=== PATIENT | female | born 1930 | race Caucasian/White ===

== ENCOUNTER 2019-10-06 10:58 | Inpatient (IN) | payer MEDICARE, OTHER ==
[2019-10-03 14:41] LABS: BASOPHILS # (AUTO) 0.03 x10^3/uL (0-0.1); BASOPHILS % (AUTO) 0 % (0-1); EOSINOPHILS % (AUTO) 1 % (1-7); LYMPHOCYTES % (AUTO) 20 % (22-44); MD NO; MEAN CORPUSCULAR HGB CONC 32.8 g/dL (32.4-35.8); MEAN PLATELET VOLUME 9.2 fL (7.4-10.4); MONOCYTES # (AUTO) 0.58 x10^3/uL (0.2-0.8); MONOCYTES % (AUTO) 8 % (2-9); NEUTROPHILS # (AUTO) 5.02 x10^3/uL (1.8-6.8); NEUTROPHILS % (AUTO) 71 % (42-75); PLATELET COUNT 155 x10^3/uL (130-400); RED BLOOD COUNT 4.67 x10^6/uL (3.82-5.3); RED CELL DISTRIBUTION WIDTH 14.9 % (9.6-15.2)
[2019-10-03 14:52] LABS: ALANINE AMINOTRANSFERASE 22 U/L (12-78); ALBUMIN 4.4 g/dL (3.4-5.0); ANION GAP 6 mmol/L (5-15); CALCIUM 9.4 mg/dL (8.5-10.1); CHLORIDE 103 mmol/L (98-107); CREATININE 0.99 mg/dL (0.55-1.02)
[2019-10-03 14:54] LABS: ALKALINE PHOSPHATASE 66 U/L (45-117); BILIRUBIN,TOTAL 0.5 mg/dL (0.2-1.0)
[~2019-10-06] VITALS: Ht 177.8 cm; Wt 81.7 kg
[~2019-10-06 10:58] MED LIST: ACET325T14 PO; APIX5TAB PO; ASPI-691 PO; EPINEPHRINE 1 MG/ML, 1ML ONE; IRBE75TA31 PO; KETOROLAC 60 MG/2 ML ONE; METO25TA2 PO; METO25TA35 PO; MULT-449 PO; MULT-717 PO; ROPIvacaine/PF 0.2%, 20 ML ONE; SODIUM CHLORIDE 0.9% 50 ML ONE; TRANEXAMIC ACID 100 MG/ML, 10ML ONE; oxycodone PO
[2019-10-06] MEDS ORDERED: VANCOMYCIN PER PHARMACY MC PRN (12:00)
[2019-10-06] MEDS ORDERED: CHLORHEXIDINE 15 ML UDC MM ONE (12:00)
[2019-10-06] MEDS ORDERED: CHLORHEXIDINE 15 ML UDC ONE (12:05)
[2019-10-06] MEDS ORDERED: VANCOMYCIN 1,800 MG in SODIUM CHLORIDE 0.9% 250 ML IV ONE (12:30)
[2019-10-06] MEDS ORDERED: LACTATED RINGERS 1,000 ML IV SCH (12:30)
[2019-10-06] MEDS ORDERED: FENTANYL PF 250 MCG/5ML ONE (13:03)
[2019-10-06] MEDS ORDERED: MEPERIDINE/PF 25MG/0.5ML IVPush PRN (13:30)
[2019-10-06] MEDS ORDERED: ONDANSETRON 2MG/ML, 2ML IVPush PRN ×2 (13:30→16:30)
[2019-10-06] MEDS ORDERED: OXYcodone 5 MG/5 ML ORAL.SOL UDC PO PRN (13:30)
[2019-10-06] MEDS ORDERED: LABETALOL 5MG/ML, 20ML IV PRN (13:30)
[2019-10-06] MEDS ORDERED: ACETAMINOPHEN 325 MG TABLET PO PRN (13:30)
[2019-10-06] MEDS ORDERED: CEFAZOLIN 1,000 MG ONE (13:53)
[2019-10-06] MEDS ORDERED: PROPOFOL 10 MG/ML, 20ML ONE (13:53)
[2019-10-06] MEDS ORDERED: ONDANSETRON 2MG/ML, 2ML ONE (13:53)
[2019-10-06] MEDS ORDERED: METOPROLOL 1 MG/ML, 5ML ONE (13:53)
[2019-10-06] MEDS ORDERED: ROCURONIUM 10MG/ML,5ML ONE ×6 (13:53)
[2019-10-06] MEDS ORDERED: FENTANYL PF 100 MCG/2ML ONE ×2 (14:59→16:18)
[2019-10-06] MEDS: SODIUM CHLORIDE 0.9% 1,000 ML IV SCH (16:12)
[2019-10-06] MEDS ORDERED: OXYcodone 5 MG/5 ML ORAL.SOL UDC ONE (16:18)
[2019-10-06] MEDS: FENTANYL PF 100 MCG/2ML IV PRN ×3 (16:20→16:45)
[2019-10-06] MEDS: ACETAMINOPHEN 500 MG TABLET PO SCH ×2 (16:30→21:54)
[2019-10-06] MEDS ORDERED: DIAZEPAM 5 MG TABLET PO PRN (16:30)
[2019-10-06] MEDS ORDERED: OXYcodone IR 5MG TABLET PO PRN ×2 (16:30)
[2019-10-06] MEDS ORDERED: BISACODYL 10 MG SUPP PR PRN (16:30)
[2019-10-06] MEDS ORDERED: MAGNESIUM HYDROXIDE 8%, 30ML UDC PO PRN (16:30)
[2019-10-06] MEDS ORDERED: CEFAZOLIN PMX 1GM/50ML 50 ML IVPB SCH (16:30)
[2019-10-06] MEDS ORDERED: PROMETHAZINE 12.5 MG SUPP PR PRN (16:30)
[2019-10-06] MEDS ORDERED: PROMETHAZINE 25 MG/ML, 1ML IM PRN (16:30)
[2019-10-06] MEDS ORDERED: DIPHENHYDRAMINE 50 MG/ML, 1ML IVPush PRN (16:30)
[2019-10-06] MEDS ORDERED: PSYLLIUM PACKET PO PRN (16:30)
[2019-10-06] MEDS ORDERED: ALUMINUM/MAG/SIMETHICONE 30 ML UDC PO PRN (16:30)
[2019-10-06] MEDS ORDERED: HOLD MEDICATION MC PRN (16:30)
[2019-10-06] MEDS ORDERED: ONDANSETRON 4 MG TABLET PO PRN (16:30)
[2019-10-06] MEDS ORDERED: METOCLOPRAMIDE 5 MG/ML, 2ML IVPush PRN (16:30)
[2019-10-06] MEDS ORDERED: SENNA/DOCUSATE TABLET PO PRN (16:30)
[2019-10-06] MEDS ORDERED: DEXAMETHASONE 4 MG/ML, 1ML IVPush ONE (16:30)
[2019-10-06] MEDS ORDERED: DIPHENHYDRAMINE 25 MG CAPSULE PO PRN (16:30)
[2019-10-06] MEDS ORDERED: POLYETHYLENE GLYCOL 17 GM PACKET PO PRN (16:30)
[2019-10-06] MEDS ORDERED: HYDROmorphone 1 MG/ML, 1ML INJ IVPush PRN (16:30)
[2019-10-06] MEDS ORDERED: hydrALAzine 20 MG/ML, 1ML ONE (16:36)
[2019-10-06] MEDS: hydrALAzine 20 MG/ML, 1ML IV PRN ×3 (16:40→17:27)
[2019-10-06] MEDS ORDERED: ENALAPRILAT 1.25 MG/ML, 2ML IV PRN (17:00)
[2019-10-06] MEDS ORDERED: HYDROmorphone 1 MG/ML, 1ML INJ ONE (17:07)
[2019-10-06] MEDS ORDERED: TRANEXAMIC ACID 1,000 MG in SODIUM CHLORIDE 0.9% 100 ML IVPB ONE (17:30)
[2019-10-06] MEDS: KETOROLAC 30 MG/1 ML IV SCH (18:00)
[2019-10-06 19:14] VITALS: BP 149/66
[2019-10-06] MEDS: DOCUSATE 100 MG CAPSULE PO SCH (21:51)
[2019-10-06] MEDS: APIXABAN 5 MG TABLET PO SCH (21:52)
[2019-10-07 00:02] VITALS: BP 111/66
[2019-10-07] MEDS: KETOROLAC 30 MG/1 ML IV SCH ×2 (02:13→09:00)
[2019-10-07 04:40] LABS: MEAN CORPUSCULAR HEMOGLOBIN 32.3 pg (27.0-34.8); MEAN CORPUSCULAR HGB CONC 32.9 g/dL (32.4-35.8); MEAN PLATELET VOLUME 9.8 fL (7.4-10.4); PLATELET COUNT 123 x10^3/uL (130-400); RED BLOOD COUNT 3.71 x10^6/uL (3.82-5.3); RED CELL DISTRIBUTION WIDTH 14.5 % (9.6-15.2)
[2019-10-07] MEDS: ACETAMINOPHEN 500 MG TABLET PO SCH ×4 (04:40→19:38)
[2019-10-07 04:46] LABS: ALBUMIN 2.9 g/dL (3.4-5.0); ANION GAP 6 mmol/L (5-15); CHLORIDE 106 mmol/L (98-107)
[2019-10-07] MEDS: SODIUM CHLORIDE 0.9% 1,000 ML IV SCH (05:06)
[2019-10-07 05:50] LABS: BASOPHILS # (AUTO) 0.01 x10^3/uL (0-0.1); BASOPHILS % (AUTO) 0 % (0-1); EOSINOPHILS # (AUTO) 0.01 x10^3/uL (0-0.4); EOSINOPHILS % (AUTO) 0 % (1-7); LYMPHOCYTES # (AUTO) 0.31 x10^3/uL (1-3.4); LYMPHOCYTES % (AUTO) 2 % (22-44); MD SCAN; MONOCYTES % (AUTO) 7 % (2-9); NEUTROPHILS # (AUTO) 11.59 x10^3/uL (1.8-6.8); NEUTROPHILS % (AUTO) 90 % (42-75)
[2019-10-07 07:15] VITALS: BP 132/62
[2019-10-07] MEDS: MULTIVITAMINS/MINERALS TABLET PO SCH (08:59)
[2019-10-07] MEDS: APIXABAN 5 MG TABLET PO SCH ×2 (08:59→19:39)
[2019-10-07] MEDS: IRBESARTAN 150 MG TABLET PO SCH (08:59)
[2019-10-07] MEDS: DOCUSATE 100 MG CAPSULE PO SCH ×2 (09:00→19:39)
[2019-10-07] MEDS ORDERED: METOPROLOL SUCCINATE 25 MG TAB.ER.24H PO SCH (09:00)
[2019-10-07 12:11] VITALS: BP 110/62
[2019-10-07 18:42] VITALS: BP 158/68
[2019-10-08 02:04] VITALS: BP 150/71
[2019-10-08] MEDS: ACETAMINOPHEN 500 MG TABLET PO SCH ×3 (02:11→15:59)
[2019-10-08 05:47] LABS: BASOPHILS # (AUTO) 0.01 x10^3/uL (0-0.1); BASOPHILS % (AUTO) 0 % (0-1); EOSINOPHILS # (AUTO) 0.06 x10^3/uL (0-0.4); EOSINOPHILS % (AUTO) 1 % (1-7); LYMPHOCYTES % (AUTO) 10 % (22-44); MD NO; MEAN CORPUSCULAR HEMOGLOBIN 32.4 pg (27.0-34.8); MEAN CORPUSCULAR HGB CONC 33.5 g/dL (32.4-35.8); MEAN PLATELET VOLUME 10.1 fL (7.4-10.4); MONOCYTES # (AUTO) 0.97 x10^3/uL (0.2-0.8); MONOCYTES % (AUTO) 9 % (2-9); NEUTROPHILS # (AUTO) 8.42 x10^3/uL (1.8-6.8); NEUTROPHILS % (AUTO) 80 % (42-75); PLATELET COUNT 109 x10^3/uL (130-400); RED BLOOD COUNT 3.11 x10^6/uL (3.82-5.3); RED CELL DISTRIBUTION WIDTH 14.9 % (9.6-15.2)
[2019-10-08] MEDS: APIXABAN 5 MG TABLET PO SCH (08:33)
[2019-10-08] MEDS: MULTIVITAMINS/MINERALS TABLET PO SCH (08:33)
[2019-10-08] MEDS: DOCUSATE 100 MG CAPSULE PO SCH (08:33)
[2019-10-08] MEDS: IRBESARTAN 150 MG TABLET PO SCH (08:35)
[2019-10-08 08:55] VITALS: BP 131/71
[2019-10-08] MEDS ORDERED: METOPROLOL SUCCINATE 25 MG TAB.ER.24H PO SCH (09:00)
[2019-10-08 13:13] VITALS: BP 152/72
[2019-10-08] MEDS ORDERED: HYDR-3240 PO (16:06)
== END 2019-10-08 16:20 | disposition home health service (06) | DRG 468 ==
LOC: ORIP 10:58 → 4WST 17:51 → DCLOUNGE 10-08 16:11
PROVIDERS: ADMIT Orthopaedic Surgery; ATTEND Orthopaedic Surgery
PROC: 0SPR0JZ Removal of Synthetic Substitute from Right Hip Joint, Femoral Surface, Open Approach (ICD-10-PCS; 2019-10-06)
PROC: 0SRR03Z Replacement of Right Hip Joint, Femoral Surface with Ceramic Synthetic Substitute, Open Approach (ICD-10-PCS; principal; 2019-10-06 13:30)
DX: T84.89XA Other specified complication of internal orthopedic prosthetic devices, implants and grafts, initial encounter (principal); M16.11 Unilateral primary osteoarthritis, right hip; I10 Essential (primary) hypertension; I48.0 Paroxysmal atrial fibrillation; F10.10 Alcohol abuse, uncomplicated; Y90.9 Presence of alcohol in blood, level not specified; Z96.643 Presence of artificial hip joint, bilateral; Z82.49 Family history of ischemic heart disease and other diseases of the circulatory system; Z88.0 Allergy status to penicillin; Z88.2 Allergy status to sulfonamides
CPT/HCPCS: 36415; 80048; 80053; 82040; 85025; 86850; 86900; 87081; 87635; 93005; C1713; G0378; J0171; J0690; J1100; J1170; J1885; J2405; J2704; J2795; J3010; J3370; C1776; J0360; J7030; J7050